=== PATIENT | male | born 1955 | race Caucasian/White ===

== ENCOUNTER 2023-11-24 14:51 | Outpatient (CLI) | payer MEDICARE, SELFPAY ==
--- NOTE | ~2023-11-24 | XR_ITS ---
Supine and upright views of the abdomen Clinical history: Abdominal pain Findings: Bowel gas pattern is nonspecific. No evidence for obstruction or free air. No abnormal mass lesion or calcification is seen. Osseous structures are intact. Impression: No significant abnormality is seen. Reviewed, dictated and finalized at [facility]. Impression: No significant abnormality is seen.
== END 2023-11-24 14:52 | disposition home or self-care (01) ==
LOC: GOSHIMG 14:52
PROVIDERS: PCP Family Medicine; Visit Provider Nurse Practitioner
DX: R10.32 Left lower quadrant pain (principal)
CPT/HCPCS: 74018

== ENCOUNTER 2023-12-09 09:48 | Outpatient (CLI) | payer MEDICARE, SELFPAY ==
--- NOTE | ~2023-12-09 | CT_ITS ---
EXAMINATION: CT abdomen pelvis wo con DATE: 12/09/2023 10:12 INDICATION: Constipation, unspecified. TECHNIQUE: Computed tomography (CT) of the abdomen and pelvis was performed without intravenous contr ast. Automated exposure control and iterative reconstruction technique were employed. The dose-length product was 313.51 mGy-cm. COMPARISON: Abdomen radiographs 11/24/2023 FINDINGS: The visualized portions of the lung bases demonstrate mild atelectasis. No pleural effusion . The heart size is normal. There are coronary artery calcifications. No pericardial effusion. The li khadijah, gallbladder, and adrenal glands are normal. There are areas of low attenuation in the spleen ranjana suring up to 8.9 x 3.1 cm with bulging of the capsule. The abnormality abuts the tail of the pancreas . Right kidney is normal. There is a 17 mm cyst in left kidney. There is calcified atherosclerosis of the aorta and many of the other arteries. The prostate is mildly enlarged. There are no dilated loop s of bowel. The appendix is normal. There are no pathologically enlarged lymph nodes. There is an umb ilical hernia containing fat. There is no free intraperitoneal fluid. There is moderate lower lumbar spondylosis. IMPRESSION: 1. Heterogeneous spleen with bulging of the splenic capsule, likely subacute hematoma. Reviewed, dictated and finalized at location A. IMPRESSION: 1. Heterogeneous spleen with bulging of the splenic capsule, likely subacute he matoma.
== END 2023-12-09 09:49 | disposition home or self-care (01) ==
LOC: ANHIMG 09:50
PROVIDERS: PCP Family Medicine; Visit Provider Nurse Practitioner
DX: D73.89 Other diseases of spleen (principal); K59.00 Constipation, unspecified; R10.9 Unspecified abdominal pain
CPT/HCPCS: 74176

== ENCOUNTER 2024-05-01 00:27 | Day surgery (SDC) | payer MEDICARE, SELFPAY ==
[2024-04-18 13:58] VITALS: BMI 23.1
[2024-05-01 06:17] VITALS: BMI 21.8
[2024-05-01 06:20] VITALS: BP 153/75; PULSE 75; RESP 16; TEMP 35.9; O2SAT 100
--- NOTE | 2024-05-01 06:37 | WPDANESEPPF ---
Anes - Initial Pre Proc Eval Procedure: Operation Date: 05/01/24 07:30 Proposed Procedures p Colonoscopy - Krystian Call MD Date/Time: 05/01/24 06:37 Surgeon: Krystian Call MD Pre Op Diagnosis: Fecal abnormalities Patient Data Age: 69 Gender: M Height: 1.8 m Weight: 71 kg Last Vital Signs Temp 35.9 C L 05/01/24 06:20 Pulse 75 05/01/24 06:20 Resp 16 05/01/24 06:20 BP 153/75 H 05/01/24 06:20 Pulse Ox 100 05/01/24 06:20 O2 Del Method Room Air 05/01/24 06:20 Allergies Allergy/AdvReac Type Severity Reaction Status Date / Time Penicillins Allergy Unknown Skin Verified 05/01/24 06:16 Reaction Home Medications ?Medication ?Instructions ?Recorded ?Confirmed ?Type amlodipine 2.5 mg tablet 2.5 mg PO DAILY #90 tabs 10/25/23 05/01/24 Rx lisinopril 40 mg tablet 40 mg PO DAILY #90 tabs 11/22/23 05/01/24 Rx metoprolol succinate 100 mg 100 mg PO DAILY #90 tabs 11/22/23 05/01/24 Rx tablet,extended release 24 hr lactobacillus combination no.9 4 4,000 mmu cells PO DAILY 12/09/23 05/01/24 History billion cell capsule (Adult 50 Plus Probiotic) simvastatin 20 mg tablet See Rx Instructions .Route 04/10/24 05/01/24 Rx .COMPLEX #90 tabs Patient hx anesthesia problems: none Family hx anesthesia problems: none Results Review: All pre-operative results and documents have been reviewed as part of the pre-operative evaluation. [facility] Past Medical History Medical History (Updated 05/01/24 @ 06:37 by Alverto Kyle MD) Hyperlipemia HTN (hypertension), benign Surgical History Surgical History History of tonsillectomy Family History Family History Father Hypertension Family history of elevated blood lipids Family history of lung cancer Family history of coronary artery disease Mother Hypertension Family history of elevated blood lipids Social History Social History Smoking packs per day: 0.50 Smoking cigarettes per day: 10.0 Years smoked: 40 Smoking pack-years: 20.00 Smoking status: Current every day smoker Tobacco type: cigarettes Second hand tobacco smoke exposure: Yes Alcohol intake: current Drinks per week: 20 Alcohol use details: beer Substance use: never Substance use type: does not use Lack of Transportation: No Lack of Food: Never True Current Housing: I Have Housing Concerned About Future Housing: No Difficulty Paying Gas/Electric Bills: No Difficulty Paying for Meds: No Currently Unemployed: No Difficulty w/ Childcare or Family Care: No Living arrangements: with family Occupation/Education: retired Gender identity (if verbalized by the patient): Male Anes - Eval Final PreProcedure Day of Procedure 05/01/24 06:37 Patient weight: normal Heart: regular rate and rhythm Lungs: clear to auscultation Airway: Mallampati scale class II Neurological: alert and oriented Last oral intake: >/= 8 hours ASA classification: III Emergent: no Anesthetic plan: proceed Anesthesia type and monitoring: general GIVS and standard monitoring Results Review: All pre-operative results and documents have been reviewed as part of the pre-operative evaluation. Informed Consent: The patient's anesthetic plan and its attendant risks and benefits were discussed with the patient/family/POA. Questions were solicited and answers provided to the satisfaction of the patient/family/POA.
[2024-05-01] MEDS: LACTATED RINGERS 1,000 ML 150 ML IV CONT (07:29)
--- NOTE | 2024-05-01 07:33 | PM.IMHP ---
H&P: HPI History of Present Illness Date/Time: 05/01/24 07:33 Chief Complaint: Screening colonoscopy Narrative: This is the patient's first colonoscopy. There are no GI symptoms and there is no family history of colorectal cancer. Review of Systems Review of Systems: All systems reviewed & are unremarkable except as noted in HPI and below PMFSH Past Medical History Medical History (Updated 05/01/24 @ 06:37 by Alverto Kyle MD) Hyperlipemia HTN (hypertension), benign Surgical History Surgical History History of tonsillectomy Family History Family History Father Hypertension Family history of elevated blood lipids Family history of lung cancer Family history of coronary artery disease Mother Hypertension Family history of elevated blood lipids Social History Social History Smoking packs per day: 0.50 Smoking cigarettes per day: 10.0 Years smoked: 40 Smoking pack-years: 20.00 Smoking status: Current every day smoker Tobacco type: cigarettes Second hand tobacco smoke exposure: Yes Alcohol intake: current Drinks per week: 20 Alcohol use details: beer Substance use: never Substance use type: does not use Lack of Transportation: No Lack of Food: Never True Current Housing: I Have Housing Concerned About Future Housing: No Difficulty Paying Gas/Electric Bills: No Difficulty Paying for Meds: No Currently Unemployed: No Difficulty w/ Childcare or Family Care: No Living arrangements: with family Occupation/Education: retired Gender identity (if verbalized by the patient): Male Meds Home Medications and Allergies Home Medications ?Medication ?Instructions ?Recorded ?Confirmed ?Type amlodipine 2.5 mg tablet 2.5 mg PO DAILY #90 tabs 10/25/23 05/01/24 Rx lisinopril 40 mg tablet 40 mg PO DAILY #90 tabs 11/22/23 05/01/24 Rx metoprolol succinate 100 mg 100 mg PO DAILY #90 tabs 11/22/23 05/01/24 Rx tablet,extended release 24 hr lactobacillus combination no.9 4 4,000 mmu cells PO DAILY 12/09/23 05/01/24 History billion cell capsule (Adult 50 Plus Probiotic) simvastatin 20 mg tablet See Rx Instructions .Route 04/10/24 05/01/24 Rx .COMPLEX #90 tabs Allergies Allergy/AdvReac Type Severity Reaction Status Date / Time Penicillins Allergy Unknown Skin Verified 05/01/24 06:16 Reaction Vital Signs Vital Signs - 24 hr 05/01/24 06:20 Temperature 96.7 F L Pulse Rate 75 Respiratory Rate 16 Blood Pressure 153/75 H Pulse Oximetry 100 Oxygen Delivery Room Air Exam Const: General: cooperative and healthy appearing Resp: Effort & Inspection: normal respiratory effort and able to speak in complete sentences Auscultation: clear to auscultation bilaterally Cardio: Rate: regular rate Rhythm: regular rhythm GI: Inspection: normal to inspection GI Palp: No No hepatosplenomegaly present Auscultation: normal bowel sounds Rectal Exam: deferred Skin: General skin exam: normal color Psych: Appearance: grossly normal Mental Status: mental status grossly normal Assessment and Plan Assessment and plan (1) Positive colorectal cancer screening using Cologuard test: Code(s): R19.5 - Other fecal abnormalities Status: Acute Assessment and Plan: The patient is deemed a good candidate for the procedure. Consent signed. Will proceed.
[2024-05-01 08:00] VITALS: BP 130/75; PULSE 67; RESP 19; O2SAT 100
[2024-05-01 08:10] VITALS: BP 143/85; PULSE 68; RESP 17; O2SAT 100
[2024-05-01 08:20] VITALS: BP 145/85; PULSE 65; RESP 18; O2SAT 100
== END 2024-05-01 08:25 | disposition home or self-care (01) ==
PROVIDERS: PCP Family Medicine; Referring Provider Nurse Practitioner; Visit Provider Internal Medicine Gastroenterology
PROC: 0DJD8ZZ Inspection of Lower Intestinal Tract, Via Natural or Artificial Opening Endoscopic (ICD-10-PCS; CPT 45378; principal; 2024-05-01 07:30)
DX: D12.0 Benign neoplasm of cecum (principal); D12.2 Benign neoplasm of ascending colon; D12.3 Benign neoplasm of transverse colon; K51.80 Other ulcerative colitis without complications; E78.5 Hyperlipidemia, unspecified; I10 Essential (primary) hypertension; F17.210 Nicotine dependence, cigarettes, uncomplicated; Z98.890 Other specified postprocedural states; Z80.1 Family history of malignant neoplasm of trachea, bronchus and lung; Z82.49 Family history of ischemic heart disease and other diseases of the circulatory system
CPT/HCPCS: 45385; 45380; 88305; J2704; J7120

== ENCOUNTER 2025-01-02 06:46 | Outpatient (CLI) | payer MEDICARE, SELFPAY ==
--- NOTE | ~2025-01-02 | CT_ITS ---
EXAMINATION:CT lung screening DATE: 01/02/2025 06:59 INDICATION: Screening TECHNIQUE: Computed tomography (CT) of the chest was performed without intravenous contrast. The dose-length product (DLP) was 92.54 mGy-cm. COMPARISON: None. FINDINGS: Several lung nodules are identified. Cavitating thick-walled right apical nodule measures 10.3 mm image 21 series 4. 1.3 cm anterior left upper lobe nodule image 64 series 4. 7 mm right middle lobe anterior nodule seen image. 1.3 cm pleural-based nodule seen on image right lower lobe. Other smaller nodules are seen. No consolidation effusion or pneumothorax. Bones appear intact. No bulky lymphadenopathy or mediastinal masses seen on this noncontrast exam. Heart size normal. No significant pericardial effusion. Diffuse thickening of the proximal esophageal wall noted. In the upper abdomen, extensive cystic changes in the spleen may represent sequelae from previously described hematoma. No acute process. IMPRESSION: 1. Several bilateral lung nodules concerning for metastatic malignant process. Recommend correlation with PET CT. Lung RADS 4x. 2. Other findings as above. Reviewed, dictated and finalized at location A. FLOORMAN
== END 2025-01-02 06:47 | disposition home or self-care (01) ==
PROVIDERS: PCP Family Medicine; Visit Provider Family Medicine
DX: Z12.2 Encounter for screening for malignant neoplasm of respiratory organs (principal); Z87.891 Personal history of nicotine dependence; R91.8 Other nonspecific abnormal finding of lung field
CPT/HCPCS: 71271

== ENCOUNTER 2025-01-16 09:08 | Outpatient (CLI) | payer MEDICARE, SELFPAY ==
--- NOTE | ~2025-01-16 | PE_ITS ---
EXAMINATION: PET skull to mid thigh DATE: 01/16/2025 11:33 INDICATION: Solitary pulmonary nodule TECHNIQUE: Blood glucose level was 120 mg/dL. 10.042 mCi of 18- fluorodeoxyglucose (18-FDG) was administered i.v. Low dose computed tomography (CT) images were acquired from the base of the brain to the proximal thighs for attenuation correction and anatomic localization. Positron emission tomography (PET) images were acquired in the same distribution beginning 66 minutes after injection. Images including fused PET/CT images were reconstructed in axial, coronal, and sagittal planes. Automated exposure control technique was employed. The dose-length product was 561.80mGy-cm. COMPARISON: CT dated 01/02/2025 and 12/09/2023 FINDINGS: Head/neck: There is symmetric increased activity in the oral cavity, palatine tonsils, laryngeal muscles and ocular muscles without CT correlate, likely physiologic. No pathologically enlarged cervical lymphadenopathy or suspicious foci of increased FDG uptake in the visualized head or neck. Chest: Mild emphysema. 9 mm thick-walled cavitary lesion at the right apex with mild increased FDG uptake with maximal SUV of 5.0. 1.6 x 1.3 cm FDG avid subpleural nodule at the lingula with maximal SUV of 8.7 1.5 x 0.7 cm pleural-based nodule in the right lower lobe with maximal SUV of 4.18 mm right upper lobe nodule with maximal SUV of 4.7. There are additional subcentimeter nodules without FDG activity measuring 7 mm and 6 mm no pneumonia, pulmonary edema or pleural effusion. In the right lower lobe, 5 mm at the lingula and 5 mm in the left lower lobe. Heart size is normal. Atherosclerotic coronary artery calcifications. No pericardial effusion. Ectatic ascending thoracic aorta measuring up to 4.0 cm. No pathologically enlarged or FDG avid thoracic lymphadenopathy. There is FDG avid esophageal wall thickening extending 7 cm cephalad from the level of the lauri with maximal SUV of 16.9 along and conc erning for esophageal cancer. Abdomen/pelvis/proximal thighs: Physiologic renal accumulation and excretion of FDG activity in the kidneys, bladder and along portions of ureters. Normal degree and heterogenous pattern of increased uptake throughout the liver without radiologic correlate or dominant FDG avid lesion. The gallbladder and left adrenal gland are normal. There is approximately 1 cm focus of increased FDG uptake with maximal SUV of 6.7 at the right adrenal gland without a clearly discernible adrenal nodule. Again seen are multiple cystic structures loculated fluid collections probably along the periphery of the spleen. There are 2 regions of prominent focally increased splenic activity, the larger measuring up to 3 cm in diameter abuts the tail of the pancreas with effacement of the intervening fat plane and with maximal SUV of 13.3. There is a second smaller region measuring approximately 101.5 cm on the PET imaging located at the posterior medial aspect of the spleen where it abuts one of the cystic regions. The remainder of the pancreas is normal. Mild uptake scattered throughout the bowels without radiologic correlate, also likely physiologic. Normal appendix. Small fat-containing umbilical hernia. Mild prostatomegaly measuring 4.1 x 3.8 cm. No other abnormal foci of increased FDG uptake or pathologically enlarged lymphadenopathy in the abdomen, pelvis or proximal thighs. Musculoskeletal: Severe cervical and mild to moderate thoracic and lumbar spondylosis. There is chronic mild anterior wedging of a few mid thoracic vertebral bodies. No suspicious lytic, blastic or abnormally FDG avid bone lesions. IMPRESSION: 1. Segmental wall thickening along a 7 cm length of the mid esophagus with prominent associated FDG uptake concerning for primary esophageal cancer. Recommend endoscopy for further evaluation. 2. Multiple pulmonary nodules for which including the 2 largest demonstrate increased FDG uptake and which given multiplicity are more likely either infectious/inflammatory or metastatic in etiology rather than primary lung cancer. 3. Increased FDG activity at the right adrenal gland without radiologic correlate nonetheless potentially early metastatic disease. 4. Multiple cystic lesion/loculated fluid collections about the spleen with 2 regions of increased FDG uptake region some concern for malignancy particularly the larger lesion which is positioned along side the tail of the pancreas with effacement of the intervening fat plane. Would consider further evaluation with pre and postcontrast MRI or postcontrast CT to better differentiate the lesion from the spleen and pancreas. Differential includes malignancy either metastatic or primary malignancy arising from either the pancreas or spleen. Reviewed, dictated and finalized at location A. [employer] OFFICER IMPRESSION: 1. Segmental wall thickening along a 7 cm length of the mid esophagus with prom inent associated FDG uptake concerning for primary esophageal cancer. Recommend endoscopy for further evaluation. 2. Multiple pulmonary nodules for which including the 2 largest demonstrate inc reased FDG uptake and which given multiplicity are more likely either infectiou s/inflammatory or metastatic in etiology rather than primary lung cancer. 3. Increased FDG activity at the right adrenal gland without radiologic correla te nonetheless potentially early metastatic disease. 4. Multiple cystic lesion/loculated fluid collections about the spleen with 2 r egions of increased FDG uptake region some concern for malignancy particularly the larger lesion which is positioned along side the tail of the pancreas with effacement of the intervening fat plane. Would consider further evaluation with pre and postcontrast MRI or postcontrast CT to better differentiate the lesion from the spleen and pancreas. Differential includes malignancy either metastat ic or primary malignancy arising from either the pancreas or spleen.
== END 2025-01-16 09:09 | disposition home or self-care (01) ==
PROVIDERS: PCP Family Medicine; Visit Provider Family Medicine
DX: R91.1 Solitary pulmonary nodule (principal); R91.8 Other nonspecific abnormal finding of lung field
CPT/HCPCS: 78815; A9552

== ENCOUNTER 2025-01-26 01:47 | Day surgery (SDC) | payer MEDICARE, SELFPAY ==
[2025-01-22 15:03] VITALS: BMI 22.3
[2025-01-26 09:09] VITALS: BP 148/77; PULSE 73; RESP 20; TEMP 36.4; O2SAT 98
[2025-01-26] MEDS: LACTATED RINGERS 1,000 ML 150 ML IV CONT (09:23)
[2025-01-26] MEDS: SIMETHICONE ORAL SUSPENSION 20 MG/0.3 ML 30 ML BOTTLE 1.8 ML PO (09:24)
--- NOTE | 2025-01-26 09:36 | WPDANESEPPF ---
Anes - Initial Pre Proc Eval Procedure: Operation Date: 01/26/25 10:30 Proposed Procedures p Esophagogastroduodenoscopy - Krystian Call MD Date/Time: 01/26/25 09:36 Surgeon: Krystian Call MD Pre Op Diagnosis: Other specified disease of esophagus Patient Data Age: 69 Gender: M Height: 1.8 m Weight: 71.2 kg Last Vital Signs Temp 36.4 C L 01/26/25 09:09 Pulse 73 01/26/25 09:09 Resp 20 01/26/25 09:09 BP 148/77 H 01/26/25 09:09 Pulse Ox 98 01/26/25 09:09 O2 Del Method Room Air 01/26/25 09:09 Allergies Allergy/AdvReac Type Severity Reaction Status Date / Time Penicillins Allergy Unknown Skin Verified 01/26/25 09:08 Reaction Home Medications ?Medication ?Instructions ?Recorded ?Confirmed ?Type lactobacillus combination no.9 4 4,000 mmu cells PO DAILY 12/09/23 01/26/25 History billion cell capsule (Adult 50 Plus Probiotic) simvastatin 20 mg tablet 20 mg PO QHS #90 tabs 10/05/24 01/26/25 Rx losartan 100 mg tablet 100 mg PO DAILY #90 tabs 11/03/24 01/26/25 Rx amlodipine 2.5 mg tablet 2.5 mg PO DAILY #90 tabs 01/02/25 01/26/25 Rx metoprolol succinate 100 mg 100 mg PO DAILY #90 tabs 01/02/25 01/26/25 Rx tablet,extended release 24 hr Patient hx anesthesia problems: none Family hx anesthesia problems: none Results Review: All pre-operative results and documents have been reviewed as part of the pre-operative evaluation. [facility] Past Medical History Medical History Hyperlipemia HTN (hypertension), benign Surgical History Surgical History History of tonsillectomy Family History Family History Father Hypertension Family history of elevated blood lipids Family history of lung cancer Family history of coronary artery disease Mother Hypertension Family history of elevated blood lipids Social History Social History Smoking packs per day: 0.50 Smoking cigarettes per day: 10.0 Years smoked: 40 Smoking pack-years: 20.00 Smoking status: Current every day smoker Tobacco type: cigarettes Second hand tobacco smoke exposure: Yes Alcohol intake: current Drinks per week: 15 Alcohol use details: beers Substance use: never Substance use type: does not use Lack of Transportation: No Lack of Food: Never True Current Housing: I Have Housing Concerned About Future Housing: No Difficulty Paying Gas/Electric Bills: No Difficulty Paying for Meds: No Currently Unemployed: No Difficulty w/ Childcare or Family Care: No Living arrangements: with family Occupation/Education: retired Gender identity (if verbalized by the patient): Male Spiritual care concerns: No Anes - Eval Final PreProcedure Day of Procedure 01/26/25 09:36 Patient weight: normal Heart: regular rate and rhythm Lungs: clear to auscultation Airway: Mallampati scale class II Neurological: alert and oriented Last oral intake: >/= 8 hours ASA classification: III Emergent: no Anesthetic plan: proceed Anesthesia type and monitoring: general GIVS and standard monitoring Results Review: All pre-operative results and documents have been reviewed as part of the pre-operative evaluation. Informed Consent: The patient's anesthetic plan and its attendant risks and benefits were discussed with the patient/family/POA. Questions were solicited and answers provided to the satisfaction of the patient/family/POA.
--- NOTE | 2025-01-26 09:45 | PM.IMHP2 ---
H&P: HPI History of Present Illness Date/Time: 01/26/25 09:45 Chief Complaint: Dysphagia Narrative: The patient is referred for EGD for the evaluation of dysphagia, which started 5 months ago and has progressively worsened. Dysphagia is almost exclusively to solids, and very consistent, especially with meat, chicken or hard food items . There is some unquantified unintentional weight loss. Recent imaging studies suggest a neoplasm in the esophagus, corroborated by a PET scan. Review of Systems Review of Systems: All systems reviewed & are unremarkable except as noted in HPI and below PMFSH Past Medical History Medical History Hyperlipemia HTN (hypertension), benign Surgical History Surgical History History of tonsillectomy Family History Family History Father Hypertension Family history of elevated blood lipids Family history of lung cancer Family history of coronary artery disease Mother Hypertension Family history of elevated blood lipids Social History Social History Smoking packs per day: 0.50 Smoking cigarettes per day: 10.0 Years smoked: 40 Smoking pack-years: 20.00 Smoking status: Current every day smoker Tobacco type: cigarettes Second hand tobacco smoke exposure: Yes Alcohol intake: current Drinks per week: 15 Alcohol use details: beers Substance use: never Substance use type: does not use Lack of Transportation: No Lack of Food: Never True Current Housing: I Have Housing Concerned About Future Housing: No Difficulty Paying Gas/Electric Bills: No Difficulty Paying for Meds: No Currently Unemployed: No Difficulty w/ Childcare or Family Care: No Living arrangements: with family Occupation/Education: retired Gender identity (if verbalized by the patient): Male Spiritual care concerns: No Meds Home Medications and Allergies Home Medications ?Medication ?Instructions ?Recorded ?Confirmed ?Type lactobacillus combination no.9 4 4,000 mmu cells PO DAILY 12/09/23 01/26/25 History billion cell capsule (Adult 50 Plus Probiotic) simvastatin 20 mg tablet 20 mg PO QHS #90 tabs 10/05/24 01/26/25 Rx losartan 100 mg tablet 100 mg PO DAILY #90 tabs 11/03/24 01/26/25 Rx amlodipine 2.5 mg tablet 2.5 mg PO DAILY #90 tabs 01/02/25 01/26/25 Rx metoprolol succinate 100 mg 100 mg PO DAILY #90 tabs 01/02/25 01/26/25 Rx tablet,extended release 24 hr Allergies Allergy/AdvReac Type Severity Reaction Status Date / Time Penicillins Allergy Unknown Skin Verified 01/26/25 09:08 Reaction Vital Signs Vital Signs - 24 hr 01/26/25 09:09 Temperature 97.5 F L Pulse Rate 73 Respiratory Rate 20 Blood Pressure 148/77 H Pulse Oximetry 98 Oxygen Delivery Room Air Exam Const: General: cooperative and healthy appearing Resp: Effort & Inspection: normal respiratory effort and able to speak in complete sentences Auscultation: clear to auscultation bilaterally Cardio: Rate: regular rate Rhythm: regular rhythm GI: Inspection: normal to inspection GI Palp: No No hepatosplenomegaly present Auscultation: normal bowel sounds Rectal Exam: deferred Skin: General skin exam: normal color Psych: Appearance: grossly normal Mental Status: mental status grossly normal Assessment and Plan Assessment and plan (1) Trouble swallowing: Code(s): R13.10 - Dysphagia, unspecified Status: Acute Assessment and Plan: The patient is deemed a good candidate for the procedure. 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 Consent signed. Will proceed. Prior Studies I have reviewed the following patient records and this information was taken into consideration when formulating the assessment and plan.: previous labs, previous ER visits, previous hospitalizations and previous clinic visits
--- NOTE | 2025-01-26 10:03 | S_PTH ---
PATIENT: Alvino Wooten LOC: [facility] U#:[id number] AGE/SX: 69/M ROOM: RE01/26/[address]: Krystian Call MD : [id number] BED: DIS: 01/26/2025 SPEC #: [id number] RECD: 01/26/25 11:45 STATUS: KELBY REQ #: [id number] ALVARADO: 01/26/25 10:[address]: Krystian Call DEPT: [facility] Surgical RECD BY: Cassandra Ralph ENTERED: 01/26/25 11:45 SP TYPE: Surgical OTHR DR: Kerrie Dailey, Tissues: A - Esophageal Biopsy Procedures: Hematoxylin and Eosin Stain Gross and Microscopic Level 4 HER2 P16
[2025-01-26 10:10] VITALS: BP 108/70; PULSE 77; RESP 23; O2SAT 98
[2025-01-26 10:20] VITALS: BP 115/72; PULSE 63; RESP 15; O2SAT 98
[2025-01-26 10:30] VITALS: BP 144/85; PULSE 69; RESP 21; O2SAT 99
== END 2025-01-26 11:17 | disposition home or self-care (01) ==
PROVIDERS: PCP Family Medicine; Referring Provider Family Medicine; Visit Provider Internal Medicine Gastroenterology
PROC: 0DJ08ZZ Inspection of Upper Intestinal Tract, Via Natural or Artificial Opening Endoscopic (ICD-10-PCS; CPT 43239; principal; 2025-01-26 10:30)
DX: C15.3 Malignant neoplasm of upper third of esophagus (principal); K44.9 Diaphragmatic hernia without obstruction or gangrene; E78.5 Hyperlipidemia, unspecified; I10 Essential (primary) hypertension; F17.210 Nicotine dependence, cigarettes, uncomplicated; Z98.890 Other specified postprocedural states; Z80.1 Family history of malignant neoplasm of trachea, bronchus and lung; Z82.49 Family history of ischemic heart disease and other diseases of the circulatory system
CPT/HCPCS: 43239; 88305; 88342; J2003; J2704; J7120